=== PATIENT | male | born 1955 | race Caucasian/White ===

== ENCOUNTER 2025-03-16 12:09 | Inpatient (IN) | payer BC, MEDICAID ==
[~2025-03-16] VITALS: Ht 177.8 cm; Wt 94.9 kg
[2025-03-16] MEDS ORDERED: AZITHROMYCIN 250 MG in DEXT 5% WATER 250 ML IV SCH (12:30)
[2025-03-16] MEDS: CEFTRIAXONE 1GM/50ML 50 ML IV ONE (12:45)
[2025-03-16] MEDS: SODIUM CHLORIDE 0.9% (SEPSIS BOLUS) IV ONE (12:49)
[2025-03-16] MEDS: METHYLPREDNISOLONE SOD SUCC 125MG/2ML (ACT-O-VIAL) IV ONE (13:11)
[2025-03-16] MEDS: AZITHROMYCIN 500MG/250ML 250 ML IV SCH (13:15)
[2025-03-16 13:39] LABS: HEMATOCRIT. 28.8 % (42.0-52.0); HEMOGLOBIN. 9.4 g/dL (14.0-18.0); MEAN PLATELET VOLUME 8.3 fl (7.4-10.4); PLATELET 384 x1000/uL (130-400); RED BLOOD CELL COUNT 3.58 mill/uL (4.7-6.1); RED CELL DISTRIBUTION WIDTH 15.6 % (11.6-14.6)
[2025-03-16 13:44] LABS: CREATININE 1.9 mg/dL (0.6-1.3)
[2025-03-16 13:45] LABS: UREA NITROGEN BLOOD 31 mg/dL (9-23)
[2025-03-16 13:47] LABS: ASPARTATE AMINOTRANSFERASE 19 IU/L (<34); BILIRUBIN DIRECT 0.3 mg/dL (<=3.0); BILIRUBIN TOTAL 0.5 mg/dL (0.1-1.0); INR 1.3; PROTEIN TOTAL 6.7 g/dL (6.0-8.3)
[2025-03-16 14:38] LABS: BAND% 5.0 % (1.0-6.0); EOSINOPHILS % MANUAL 1.0 % (0.0-5.0); LYMPHOCYTES % MANUAL 5.0 % (20.0-50.0); MONOCYTES % MANUAL 5.0 % (2.0-8.0); NEUTROPHILS % MANUAL 84.0 % (45.0-75.0); PLATELET ESTIMATE NORMAL
[2025-03-16 15:45] VITALS: PULSE 85; RESP 22; O2SAT 99
[2025-03-16] MEDS: IPRATROPIUM/ALBUTEROL 0.5-3(2.5)MG/3ML NEB HHN ONE (15:45)
[2025-03-16] MEDS: IPRATROPIUM/ALBUTEROL 0.5-3(2.5)MG/3ML NEB HHN SCH (16:00)
[2025-03-16] MEDS ORDERED: MAGNESIUM/ALUMINUM HYDROXIDE/SIMETHICONE 30ML UDC PO PRN (16:30)
[2025-03-16] MEDS ORDERED: CLONIDINE 0.1MG TABLET PO PRN (16:30)
[2025-03-16] MEDS ORDERED: MORPHINE SULFATE 4 MG/ML INJ (FOR IV/IM USE) IV PRN (16:43)
[2025-03-16 17:10] VITALS: BP 113/64; PULSE 94; RESP 22; TEMP 35.6952; TEMP 35.7; O2SAT 99
[2025-03-16] MEDS ORDERED: VANCOMYCIN 750MG PREMIX 150 ML IV NR (17:15)
[2025-03-16] MEDS ORDERED: FURO-151 PO (17:40)
[2025-03-16] MEDS ORDERED: NITR0.4T49 SL (17:40)
[2025-03-16] MEDS ORDERED: POTA-189 PO (17:40)
[2025-03-16] MEDS ORDERED: ALBU18HF2 IH (17:40)
[2025-03-16] MEDS ORDERED: TAMS-54 PO (17:40)
[2025-03-16] MEDS ORDERED: QUET200T PO (17:40)
[2025-03-16] MEDS ORDERED: ATOR20TA PO (17:40)
[2025-03-16] MEDS ORDERED: FLUT12AE3 INH (17:40)
[2025-03-16] MEDS ORDERED: QUET300T2 PO (17:40)
[2025-03-16] MEDS ORDERED: LOSA-413 PO (17:40)
[2025-03-16] MEDS ORDERED: IBUP-2899 (17:40)
[2025-03-16] MEDS: SODIUM CHLORIDE 0.9% 1,000 ML IV SCH (18:12)
[2025-03-16] MEDS: PIPERACILLIN/TAZO 3.375G/50ML 50 ML IV NR (18:12)
[2025-03-16] MEDS ORDERED: POTASSIUM CHLORIDE 40 MEQ in DEXT 5% WATER 230 ML IV ONE (19:30)
[2025-03-16 20:00] VITALS: BP 113/70; PULSE 85; RESP 20; TEMP 36.4; O2SAT 99
[2025-03-16 21:46] LABS: CLARITY URINE CLEAR (CLEAR); COLOR URINE YELLOW (YELLOW); GLUCOSE URINE NEGATIVE (NEGATIVE); KETONES URINE NEGATIVE (NEGATIVE); LEUKOCYTE ESTERASE URINE NEGATIVE (NEGATIVE); NITRITE URINE NEGATIVE (NEGATIVE); OCCULT BLOOD URINE NEGATIVE (NEGATIVE); PH URINE 6.0 (4.5-8.0); PROTEIN URINE NEGATIVE (NEGATIVE); SPECIFIC GRAVITY URINE 1.011 (1.005-1.030); UROBILINOGEN URINE 1.0 E.U./dL (0.2-1.0)
[2025-03-16 22:00] LABS: *AMPHETAMINES SCREEN URINE NEGATIVE (NEGATIVE)
[2025-03-16] MEDS: VANCOMYCIN 1.5GM PMX (XELLIA) 300 ML IV NR (22:00)
[2025-03-16 22:01] LABS: *BARBITURATES SCREEN URINE NEGATIVE (NEGATIVE); *BENZODIAZEPINES SCREEN URINE NEGATIVE (NEGATIVE); *COCAINE SCREEN URINE NEGATIVE (NEGATIVE); CANNABINOID URINE SCREEN PRESUMPTIVE POSITIVE (NEGATIVE); ECSTASY MDMA SCREEN URINE NEGATIVE (NEGATIVE); METHADONE URINE SCREEN NEGATIVE (NEGATIVE); OPIATES URINE SCREEN NEGATIVE (NEGATIVE); PHENCYCLIDINE URINE SCREEN NEGATIVE (NEGATIVE)
[2025-03-16] MEDS: KCL 20MEQ/100ML X 2 FOR TOTAL KCL 40MEQ/200ML IV SCH (23:11)
[2025-03-16] MEDS: ZOLPIDEM TARTRATE 5MG TABLET PO PRN (23:13)
[2025-03-17] VITALS (8 sets, daily range): BP systolic 95–122; BP diastolic 53–70; PULSE 74–94; RESP 16–21; TEMP 36.1–36.8; O2SAT 97–100
[2025-03-17] MEDS: ONDANSETRON HCL 4MG/2ML INJ IV PRN (05:14)
[2025-03-17] MEDS: TAMSULOSIN HCL 0.4MG SR CAPSULE PO SCH (08:11)
[2025-03-17] MEDS: ENOXAPARIN 30MG/0.3ML SYR SUBCUT SCH (08:11)
[2025-03-17] MEDS: GUAIFENESIN 200MG/10ML SUGAR FREE UDC PO PRN (08:11)
[2025-03-17] MEDS: PIPERACILLIN/TAZO 3.375G/50ML 50 ML IV SCH (08:11)
[2025-03-17] MEDS: QUETIAPINE FUMARATE 200MG TABLET PO SCH (08:11)
[2025-03-17] MEDS: PANTOPRAZOLE SODIUM 40 MG/VIAL IV SCH (08:11)
[2025-03-17] MEDS: LOSARTAN 50 MG TABLET PO SCH (08:12)
[2025-03-17 11:49] LABS: HEMATOCRIT. 30.3 % (42.0-52.0); HEMOGLOBIN. 9.5 g/dL (14.0-18.0); MEAN PLATELET VOLUME 8.0 fl (7.4-10.4); PLATELET 400 x1000/uL (130-400); RED BLOOD CELL COUNT 3.61 mill/uL (4.7-6.1); RED CELL DISTRIBUTION WIDTH 16.1 % (11.6-14.6)
[2025-03-17 12:01] LABS: TROPONIN I HIGH SENSITIVITY 24 ng/L (3.0-53)
[2025-03-17 12:03] LABS: CREATININE 1.7 mg/dL (0.6-1.3); UREA NITROGEN BLOOD 30.0 mg/dL (9-23)
[2025-03-17 15:30] LABS: TROPONIN I HIGH SENSITIVITY 22 ng/L (3.0-53)
[2025-03-17] MEDS: PIPERACILLIN/TAZO 3.375G/50ML IV SCH (15:42)
[2025-03-17] MEDS ORDERED: VANCOMYCIN 750MG PREMIX 150 ML IV SCH (16:00)
[2025-03-17] MEDS: IPRATROPIUM/ALBUTEROL 0.5-3(2.5)MG/3ML NEB HHN SCH (16:14)
[2025-03-17] MEDS: METHYLPREDNISOLONE SOD SUCC 40MG/ML (ACT-O-VIAL) IV SCH (17:12)
[2025-03-17 17:21] LABS: LYMPHOCYTES % MANUAL 3.0 % (20.0-50.0); MONOCYTES % MANUAL 3.0 % (2.0-8.0); NEUTROPHILS % MANUAL 94.0 % (45.0-75.0); PLATELET ESTIMATE NORMAL
[2025-03-17] MEDS: VANCOMYCIN 1G PREMIX 200 ML IV SCH (21:19)
[2025-03-17] MEDS: ATORVASTATIN CALCIUM 20MG TABLET PO SCH (21:19)
[2025-03-17] MEDS: QUETIAPINE FUMARATE 50MG TABLET PO SCH (21:20)
[2025-03-18] VITALS (12 sets, daily range): BP systolic 101–129; BP diastolic 52–80; PULSE 73–101; RESP 14–22; TEMP 36.1–36.6; O2SAT 95–100
[2025-03-18] MEDS: ENOXAPARIN 40MG/0.4ML SYR SUBCUT SCH (09:08)
[2025-03-18 09:12] LABS: HEMATOCRIT. 26.4 % (42.0-52.0); HEMOGLOBIN. 8.8 g/dL (14.0-18.0); MEAN PLATELET VOLUME 8.1 fl (7.4-10.4); PLATELET 381 x1000/uL (130-400); RED BLOOD CELL COUNT 3.28 mill/uL (4.7-6.1); RED CELL DISTRIBUTION WIDTH 16.0 % (11.6-14.6)
[2025-03-18 09:14] LABS: CREATININE 1.6 mg/dL (0.6-1.3)
[2025-03-18 09:15] LABS: UREA NITROGEN BLOOD 29.0 mg/dL (9-23)
[2025-03-18] MEDS ORDERED: NALOXONE HCL 0.4MG/ML VIAL IV PRN (13:15)
[2025-03-18] MEDS: FLUCONAZOLE 100MG TABLET PO SCH (14:14)
[2025-03-18] MEDS: HYDROCODONE/ACETAMINOPHEN 5/325MG TABLET PO PRN (14:40)
[2025-03-18] MEDS: DOXYCYCLINE 100MG/100ML 100 ML IV SCH (18:54)
[2025-03-18 21:52] LABS: LYMPHOCYTES % MANUAL 1.0 % (20.0-50.0); MONOCYTES % MANUAL 3.0 % (2.0-8.0); NEUTROPHILS % MANUAL 96.0 % (45.0-75.0); PLATELET ESTIMATE NORMAL
[2025-03-18] MEDS: QUETIAPINE FUMARATE 200MG TABLET PO SCH (22:00)
[2025-03-18 23:33] LABS: HEPATITIS A AB IGM NEGATIVE (Negative)
[2025-03-18 23:34] LABS: HEPATITIS B CORE AB IGM NEGATIVE (Negative)
[2025-03-19] VITALS (12 sets, daily range): BP systolic 110–144; BP diastolic 59–86; PULSE 70–93; RESP 15–20; TEMP 36.4–37.2; O2SAT 95–98
[2025-03-19 01:15] LABS: HEPATITIS C AB REACTIVE (Pos) (Negative)
[2025-03-19 06:39] LABS: HEMATOCRIT. 24.6 % (42.0-52.0); HEMOGLOBIN. 8.2 g/dL (14.0-18.0); MEAN PLATELET VOLUME 8.3 fl (7.4-10.4); PLATELET 376 x1000/uL (130-400); RED BLOOD CELL COUNT 3.07 mill/uL (4.7-6.1); RED CELL DISTRIBUTION WIDTH 15.9 % (11.6-14.6)
[2025-03-19 07:34] LABS: CREATININE 1.4 mg/dL (0.6-1.3); UREA NITROGEN BLOOD 26.0 mg/dL (9-23)
[2025-03-19] MEDS ORDERED: LOSA50TA41 PO (12:14)
[2025-03-19] MEDS ORDERED: METH40VI35 IV (12:14)
[2025-03-19] MEDS ORDERED: DOXY100V4 IV (12:14)
[2025-03-19] MEDS ORDERED: IPRA3AMP9 HHN (12:14)
[2025-03-19] MEDS ORDERED: ATOR20TA PO (12:14)
[2025-03-19 16:24] LABS: LYMPHOCYTES % MANUAL 2.0 % (20.0-50.0); MONOCYTES % MANUAL 4.0 % (2.0-8.0); NEUTROPHILS % MANUAL 94.0 % (45.0-75.0); PLATELET ESTIMATE NORMAL
[2025-03-19] MEDS: VANCOMYCIN 1.25GM/250ML IV SCH (21:22)
[2025-03-20] VITALS (11 sets, daily range): BP systolic 103–149; BP diastolic 51–90; PULSE 59–113; RESP 16–22; TEMP 36.5–37; O2SAT 94–97
[2025-03-21] VITALS (12 sets, daily range): BP systolic 118–144; BP diastolic 76–91; PULSE 77–105; RESP 15–20; TEMP 36.6–37.2; O2SAT 92–98
[2025-03-21] MEDS: ACETAMINOPHEN 325MG TABLET PO PRN (02:57)
[2025-03-21] MEDS: IBUPROFEN 800MG TABLET PO NR (18:19)
[2025-03-22] VITALS (9 sets, daily range): BP systolic 108–122; BP diastolic 71–79; PULSE 79–100; RESP 12–22; TEMP 36.4–37.4; O2SAT 95–100
[2025-03-22] MEDS: IPRATROPIUM/ALBUTEROL 0.5-3(2.5)MG/3ML NEB HHN SCH (17:28)
[2025-03-22] MEDS: METHYLPREDNISOLONE SOD SUCC 40MG/ML (ACT-O-VIAL) IV SCH (21:51)
[2025-03-23] VITALS (10 sets, daily range): BP systolic 109–133; BP diastolic 78–98; PULSE 62–103; RESP 17–20; TEMP 36.3–37.3; O2SAT 93–99
[2025-03-23] MEDS: IBUPROFEN 800MG TABLET PO PRN (00:33)
[2025-03-23 06:38] LABS: HEMATOCRIT. 31.2 % (42.0-52.0); HEMOGLOBIN. 10.1 g/dL (14.0-18.0); MEAN PLATELET VOLUME 8.5 fl (7.4-10.4); PLATELET 432 x1000/uL (130-400); RED BLOOD CELL COUNT 3.79 mill/uL (4.7-6.1); RED CELL DISTRIBUTION WIDTH 16.4 % (11.6-14.6)
[2025-03-23 06:54] LABS: CREATININE 1.4 mg/dL (0.6-1.3)
[2025-03-23 06:55] LABS: UREA NITROGEN BLOOD 29.0 mg/dL (9-23)
[2025-03-23] MEDS: FAMOTIDINE 20MG/2ML VIAL IV SCH (09:00)
[2025-03-23 22:36] LABS: BAND% 2.0 % (1.0-6.0); LYMPHOCYTES % MANUAL 7.0 % (20.0-50.0); METAMYELOCYTES % 1.0 % (0-0); MONOCYTES % MANUAL 9.0 % (2.0-8.0); MYELOCYTES % 3.0 % (0-0); NEUTROPHILS % MANUAL 78.0 % (45.0-75.0); PLATELET ESTIMATE NORMAL
[2025-03-24] VITALS (13 sets, daily range): BP systolic 118–138; BP diastolic 70–105; PULSE 63–101; RESP 18–20; TEMP 36.2–37.2; O2SAT 91–99
[2025-03-24 08:08] LABS: *ASPERGILLUS FUMIGATUS IGG 37.4 mg/L (0.0-50.6)
[2025-03-24 11:45] LABS: CREATININE 1.4 mg/dL (0.6-1.3); UREA NITROGEN BLOOD 20 mg/dL (9-23)
[2025-03-24 12:30] LABS: HEMATOCRIT. 32.7 % (42.0-52.0); HEMOGLOBIN. 10.4 g/dL (14.0-18.0); MEAN PLATELET VOLUME 8.3 fl (7.4-10.4); PLATELET 420 x1000/uL (130-400); RED BLOOD CELL COUNT 3.93 mill/uL (4.7-6.1); RED CELL DISTRIBUTION WIDTH 16.3 % (11.6-14.6)
[2025-03-24 14:47] LABS: EOSINOPHILS % MANUAL 1.0 % (0.0-5.0); LYMPHOCYTES % MANUAL 6.0 % (20.0-50.0); MONOCYTES % MANUAL 6.0 % (2.0-8.0); NEUTROPHILS % MANUAL 87.0 % (45.0-75.0); PLATELET ESTIMATE INCREASED
[2025-03-25 00:14] VITALS: BP 126/85; PULSE 91; RESP 20; TEMP 36.6; O2SAT 94
[2025-03-25] MEDS ORDERED: MAGNESIUM SULFATE 1GM/2ML VIAL IV ONE (01:00)
[2025-03-25] MEDS: IOHEXOL-300 100 ML BOTTLE ONE (02:00)
[2025-03-25] MEDS: MAGNESIUM 4 GM IV NR (02:05)
[2025-03-25 08:13] VITALS: BP 123/88; PULSE 87; RESP 18; TEMP 36.2; O2SAT 97
[2025-03-25] MEDS: PREDNISONE 20MG TABLET PO SCH (09:21)
[2025-03-25] MEDS ORDERED: DEXTL PO (09:59)
[2025-03-25] MEDS ORDERED: P20 PO (09:59)
[2025-03-25] MEDS ORDERED: TAMS-54 PO (09:59)
[2025-03-25 10:13] VITALS: BP 122/74; PULSE 94; RESP 18; TEMP 97.7
[2025-03-25 10:28] VITALS: PULSE 110; RESP 18; O2SAT 97
== END 2025-03-25 11:15 | disposition home or self-care (01) | DRG 871 ==
LOC: ER 12:16 → EDBEDREQ 16:14 → EDBEDREQTM 16:14 → 7WST 17:12
PROVIDERS: ADMIT Internal Medicine; ATTEND Internal Medicine
DX: A41.9 Sepsis, unspecified organism (principal); J18.8 Other pneumonia, unspecified organism; J96.01 Acute respiratory failure with hypoxia; I50.9 Heart failure, unspecified; J44.0 Chronic obstructive pulmonary disease with (acute) lower respiratory infection; N17.9 Acute kidney failure, unspecified; I13.0 Hypertensive heart and chronic kidney disease with heart failure and stage 1 through stage 4 chronic kidney disease, or unspecified chronic kidney disease; J44.1 Chronic obstructive pulmonary disease with (acute) exacerbation; D64.9 Anemia, unspecified; N18.9 Chronic kidney disease, unspecified; B19.20 Unspecified viral hepatitis C without hepatic coma; I25.10 Atherosclerotic heart disease of native coronary artery without angina pectoris; F17.210 Nicotine dependence, cigarettes, uncomplicated; F12.90 Cannabis use, unspecified, uncomplicated; Z79.899 Other long term (current) drug therapy
CPT/HCPCS: 36415; 71045; 71260; 80048; 80076; 80202; 80305; 81003; 83605; 83735; 84145; 84443; 84484; 85025; 86606; 86635; 86705; 86709; 86713; 87116; 87149; 87153; 87340; 87556; 93005; 93970; 94070; 94640; 94664; 96365; 96367; 96375; 99291; A4606; J0456; J0696; J1308; J1650; J2405; J2470; J2543; J2919; J3373; J3475; J3480; J3490; J7030; J7060; J7512; Q9967